=== PATIENT | female | born 1995 | race Caucasian/White ===

== ENCOUNTER 2023-03-05 15:32 | Emergency (ER) | payer MEDICAID ==
[~2023-03-05] VITALS: Ht 152.4 cm; Wt 45.5 kg
[2023-03-05 16:00] VITALS: BP 127/81
[2023-03-05] MEDS ORDERED: PROPARACAINE HCL 0.5% 15 ML OPHTHALMIC SOLUTION OD ONE (16:00)
[2023-03-05] MEDS ORDERED: FLUORESCEIN SODIUM 1 MG STRIP OD ONE (16:00)
[2023-03-05] MEDS ORDERED: ERYT3.5O8 OD (16:04)
== END 2023-03-05 16:39 | disposition still patient (30) ==
LOC: EMS 15:32
DX: S05.01XA Injury of conjunctiva and corneal abrasion without foreign body, right eye, initial encounter (principal); X58.XXXA Exposure to other specified factors, initial encounter; Y93.89 Activity, other specified; Y92.89 Other specified places as the place of occurrence of the external cause; Y99.8 Other external cause status
CPT/HCPCS: 99283